=== PATIENT | male | born 1990 | race Caucasian/White ===

== ENCOUNTER 2017-03-11 12:53 | Emergency (ER) | payer SELFPAY ==
[2017-03-11 12:56] VITALS: BP 158/82
--- NOTE | 2017-03-11 13:19 | DR.ABDMALE ---
HPI - Time seen Time seen: 13:15 - PCP Primary Care Physician: LORENZO VUONGP - HPI comment HPI Comment: HAD HARD STOOL YESTERDAY AND DENIES FEVER. TODAY URINE OUTPUT DECREASING. CONDITION GETTING WORSE. - Complaint Chief Complaint Doctors Comments: RLQ ABDOMINAL PAIN WITH NAUSEA TIMES 2 DAYS. Chief Complaint:: PT. C/O RIGHT LOWER ABDOMINAL PAIN THAT BEGAN A FEW DAYS AGO AND HAS WORSENED. PT. STATES HE ALSO HAS TO STRAIN TO URINATE. LBM WAS YESTERDAY AND IT WAS HARD. - Reviewed Nurses Notes Review: Yes - Mode of arrival Mode of Arrival: Ambulatory - Timing Onset of Chief Complaint: 03/08/17 Came on: Suddenly - Duration Duration: Constant Duration: Days - Location Location: RLQ - Severity Severity: Moderate - Quality Quality: Sharp - Context Onset: Suddenly History of: None - Modifying factors Worsening Factors: Nothing Improving Factors: Nothing - Associated signs and symptoms Associated Signs and Symptoms: Nausea PMH - PMH Past Medical History: Yes Past Medical History: Hypertension Past Surgical History: Yes Surgical History: Cholecystectomy, Ortho Surgery - Family History History of Family Medical Conditions: Yes Family Medical History: Heart Failure, Hypertension - Social History Does patient currently use any type of tobacco product: Yes Have you used tobacco products in the last 12 months: Yes Type of Tobacco Use: Cigarettes Does any household member use tobacco: No Alcohol Use: None Do you use any recreational Drugs:: No Lives With: Spouse Lives Where: Home - infectious screening In the last 2 months have you had wt loss of >10#?: NO Have you had fever, night sweats or hemotysis?: No Have you traveled outside the country in the last 6 months?: No Isolation: Standard ROS - Review of Systems Constitutional: No Symptoms Reported Eyes: No Symptoms Reported ENTM: No Symptoms Reported Respiratoy: No Symptoms Reported Cardiovascular: No Symptoms Reported Gastrointestinal/Abdominal: Abdominal Pain, Nausea, Other (RLQ) Genitourinary: No Symptoms Reported. negative: Dysuria, Frequency, Hematuria Neurological: No Symptoms Reported Musculoskeletal: No Symptoms Reported Integumentary: No Symptoms Reported Hematologic/Lymphatic: No Symptoms Reported Endocrine: No Symptoms Reported All Other Systems: Reviewed and Negative PE - Vital Signs Vital Signs: Temp Pulse Resp BP Pulse Ox 03/11/17 12:53 98.1 F 93 H 18 158/82 99 08/06/16 12:00 148/79 - General Limitations: No Limitations General Appearance: Alert - Head Head Exam: Normal Inspection - Eyes Eye exam: Normal Appearance - ENT ENT Exam: Normal External Ear Exam - Neck Neck Exam: Normal Inspection - Chest Chest Inspection: Symmetric Chest Wall Rise - Respiratory Respiratory Exam: Normal Lung Sounds Bilat Respiratory Exam: Bilateral Clear to Auscultation - Cardiovascular Cardiovascular Exam: Regular Rate, Normal Rhythm, Normal Heart Sounds - Abdominal Exam Abdominal Exam: Normal Bowel Sounds, Soft, Tenderness Abdominal Tenderness: RLQ, Moderate - Rectal Rectal Exam: Deferred - Back Back Exam: Normal Inspection - Extremeties Extremities Exam: Normal Inspection - Exam: Male: Deferred - Neurologic Neurological Exam: Alert, Oriented X3 - Psychiatric Psychiatric Exam: Normal Affect, Normal Mood - Skin Skin Exam: Normal Color MDM - Differential Diagnosis Differential Diagnosis: Appendicitis, Bowel Obstruction, Diverticular disease, Gastritus/PUD, Gastroenteritis, Inflammatory BD, Pancreatitis, Urinary tract infection, Urolithiasis Course - Treatment Treatment: SEE ORDERS. - Education/Counseling Education/Counseling: Patient, Education Educated On: Diagnosis, Needs for Follow Up ROR - Labs Reviewed Laboratory Results Reviewed?: Yes Result Diagrams: 03/11/17 13:24 03/11/17 13:24 Laboratory: WBC 5.7 X10^3/uL (3.6-10.0) 03/11/17 13:24 RBC 4.44 X10^6/uL (4.7-6.0) L 03/11/17 13:24 Hgb 14.0 g/dL (13.5-18.0) 03/11/17 13:24 Hct 41.1 % (42.0-54.0) L 03/11/17 13:24 MCV 92.5 fL (80.0-100.0) 03/11/17 13:24 MCH 31.4 pg (27.0-34.0) 03/11/17 13:24 MCHC 34.0 g/dL (33.0-35.0) 03/11/17 13:24 RDW 12.6 % (11.6-16.5) 03/11/17 13:24 Plt Count 218 X10^3/uL (150.0-450.0) 03/11/17 13:24 MPV 8.5 fL (7.4-11.0) 03/11/17 13:24 Neut % 63.7 % (42.0-75.0) 03/11/17 13:24 Lymph % 26.2 % (21.0-51.0) 03/11/17 13:24 [place] % 7.9 % (0.0-13.0) 03/11/17 13:24 Eos % 2.0 % (0.9-2.9) 03/11/17 13:24 Baso % 0.2 % (0.2-1.0) 03/11/17 13:24 Neut # 3.7 x10^3/uL (2.2-4.8) 03/11/17 13:24 Lymph # 1.5 X10^3/uL (1.3-2.9) 03/11/17 13:24 [place] # 0.5 x10^3/uL (0.3-0.8) 03/11/17 13:24 Eos # 0.1 x10^3/uL (0.0-0.2) 03/11/17 13:24 Baso # 0.0 X10^3/uL (0.0-0.1) 03/11/17 13:24 Absolute Nucleated RBC 0.0 /100WBC 03/11/17 13:24 Sodium 141 mmol/L (136-145) 03/11/17 13:24 Corrected Sodium TNP 03/11/17 13:24 Potassium 3.9 mmol/L (3.5-5.1) 03/11/17 13:24 Chloride 107 mmol/L (98-107) 03/11/17 13:24 Carbon Dioxide 30.1 mmol/L (21-32) 03/11/17 13:24 BUN 14 mg/dL (7-18) 03/11/17 13:24 Creatinine 0.99 mg/dL (0.70-1.30) 03/11/17 13:24 Est GFR (MDRD) Af Amer > 60 (>60) 03/11/17 13:24 Est GFR (MDRD) Non-Af > 60 (>60) 03/11/17 13:24 Glucose 98 mg/dL (65-99) 03/11/17 13:24 Calcium 8.6 mg/dL (8.5-10.1) 03/11/17 13:24 Corrected Calcium TNP 03/11/17 13:24 Total Bilirubin 0.50 mg/dL (0.2-1.0) 03/11/17 13:24 AST 15 Units/L (15-37) 03/11/17 13:24 ALT 24 Units/L (12-78) 03/11/17 13:24 Alkaline Phosphatase 76 Units/L (46-116) 03/11/17 13:24 Total Protein 7.3 g/dL (6.4-8.2) 03/11/17 13:24 Albumin 3.6 g/dL (3.4-5.0) 03/11/17 13:24 Globulin 3.7 g/dL (2.5-4.5) 03/11/17 13:24 Albumin/Globulin Ratio 1.0 Ratio (1.1-2.1) L 03/11/17 13:24 Specimen Type Clean catch urine 03/11/17 17:35 Urine Color Yellow (YELLOW) 03/11/17 17:35 Urine Appearance Hazy (CLEAR) 03/11/17 17:35 Urine pH 8.0 (5.0 - 8.0) 03/11/17 17:35 Ur Specific [place] 1.010 (1.000-1.030) 03/11/17 17:35 Urine Protein 1+ (NEGATIVE) 03/11/17 17:35 Urine Glucose (UA) Negative (NEGATIVE) 03/11/17 17:35 Urine Ketones Negative (NEGATIVE) 03/11/17 17:35 Urine Occult Blood Negative (NEGATIVE) 03/11/17 17:35 Urine Nitrite Negative (NEGATIVE) 03/11/17 17:35 Urine Bilirubin Negative (NEGATIVE) 03/11/17 17:35 Urine Urobilinogen 1+ (NORMAL) 03/11/17 17:35 Ur Leukocyte Esterase Negative (NEGATIVE) 03/11/17 17:35 Urine RBC 0-2 /HPF (NEGATIVE) 03/11/17 17:35 Urine WBC 0-2 /HPF (NEGATIVE) 03/11/17 17:35 Ur Squamous Epith Cells Negative /HPF (NEGATIVE) 03/11/17 17:35 Urine Bacteria Trace /HPF (NEGATIVE) 03/11/17 17:35 Ur Culture Indicated? No/not indicated 03/11/17 17:35 - XRAY XRAY Interpreted by: Radiologist XRAY Findings: REPORT DISCUSS WITH PATIENT. - Diagnosis Discharge Problem: Abdominal pain Qualifiers: Abdominal location: right lower quadrant Qualified Code(s): R10.31 - Right lower quadrant pain - Discharge Plan Disposition: 01 HOME, SELF-CARE Condition: Stable Prescriptions: Cyclobenzaprine HCl [FLEXERIL 10 MG *] 10 mg PO TID PRN #15 tab PRN Reason: Ibuprofen [Motrin Tab 800 mg] 800 mg PO Q8H PRN #20 tab PRN Reason: Pain/Inflammation Ranitidine HCl [ZANTAC TAB 150 MG *] 150 mg PO BID #30 tab - Follow ups/Referrals Follow ups/Referrals: WILLIAM LEON [Primary Care Provider] - 3 days - Instructions Instructions: Abdominal Pain, Adult, [id number] Additional Instructions: RETURN TO ED IF WORSE.
[2017-03-11 13:38] LABS: BASOPHILS % (AUTO) 0.2 % (0.2-1.0); EOSINOPHILS # (AUTO) 0.1 x10^3/uL (0.0-0.2); HEMATOCRIT 41.1 % (42.0-54.0); LYMPHOCYTES # (AUTO) 1.5 X10^3/uL (1.3-2.9); LYMPHOCYTES % (AUTO) 26.2 % (21.0-51.0); MEAN CORPUSCULAR HEMOGLOBIN 31.4 pg (27.0-34.0); MEAN CORPUSCULAR VOLUME 92.5 fL (80.0-100.0); MEAN PLATELET VOLUME 8.5 fL (7.4-11.0); MONOCYTES # (AUTO) 0.5 x10^3/uL (0.3-0.8); MONOCYTES % (AUTO) 7.9 % (0.0-13.0); NEUTROPHILS # (AUTO) 3.7 x10^3/uL (2.2-4.8); NEUTROPHILS % (AUTO) 63.7 % (42.0-75.0); PLATELET COUNT 218 X10^3/uL (150.0-450.0); RED BLOOD COUNT 4.44 X10^6/uL (4.7-6.0); RED CELL DISTRIBUTION WIDTH 12.6 % (11.6-16.5); WHITE BLOOD COUNT 5.7 X10^3/uL (3.6-10.0)
[2017-03-11 13:46] LABS: ALANINE AMINOTRANSFERASE 24 Units/L (12-78); ALBUMIN 3.6 g/dL (3.4-5.0); ALKALINE PHOSPHATASE 76 Units/L (46-116); ASPARTATE AMINO TRANSFERASE 15 Units/L (15-37); BLOOD UREA NITROGEN 14 mg/dL (7-18); CALCIUM 8.6 mg/dL (8.5-10.1); CARBON DIOXIDE 30.1 mmol/L (21-32); CHLORIDE 107 mmol/L (98-107); CREATININE 0.99 mg/dL (0.70-1.30); GLUCOSE 98 mg/dL (65-99); SODIUM 141 mmol/L (136-145); TOTAL PROTEIN 7.3 g/dL (6.4-8.2); eGFR BLACK RACES > 60 (>60); eGFR NON BLACK RACES > 60 (>60)
--- NOTE | 2017-03-11 16:26 | CT ---
HISTORY: Right lower quadrant abdominal pain. Study: CT abdomen and pelvis with contrast Comparison: Abdominal series dated August 06, 2016. Technique: Multiple axial images of the abdomen and pelvis were obtained from the lung bases to the pubic symph ysis after the administration of IV contrast. Dose reduction techniques including Automated Exposur e Control (AEC) and adjustment of mA and kV were utilized. Findings: The visualized portions of the lung bases are unremarkable. The liver, spleen, pancreas, kidneys, a nd adrenal glands are unremarkable in their CT appearance. The gallbladder is surgically absent. No significant mesenteric lymphadenopathy or stranding can be observed. No free fluid or free air is seen within the abdomen. Slightly limited evaluation of the large bowel secondary to lack of opacif ication from enteric contrast. The large and small bowel otherwise appear normal. The appendix is n ormal. The urinary bladder is grossly unremarkable. The bony structures are grossly intact. IMPRESSION: 1. The appendix appears normal. 2. No CT evidence of acute abdominal/pelvic pathology. Reported By:
[2017-03-11] MEDS ORDERED: MOTRIN TAB 800 MG PO ONE ×2 (17:31→17:43)
[2017-03-11] MEDS ORDERED: FLEXERIL TAB 10 MG PO ONE (17:31)
[2017-03-11 17:43] LABS: BILIRUBIN,URINE NEGATIVE (NEGATIVE); BLOOD/HEMOGLOBIN,URINE NEGATIVE (NEGATIVE); GLUCOSE, URINE NEGATIVE (NEGATIVE); KETONES,URINE NEGATIVE (NEGATIVE); LEUKOCYTE ESTERASE ,URINE NEGATIVE (NEGATIVE); NITRITES,URINE NEGATIVE (NEGATIVE); PROTEIN,URINE 1+ (NEGATIVE); UROBILINOGEN,URINE 1+ (NORMAL)
[2017-03-11] MEDS ORDERED: FLEXERIL TAB 10 MG ONE (17:43)
[2017-03-11 17:52] LABS: APPEARANCE,URINE HAZY (CLEAR); BACTERIA,URINE TRACE /HPF (NEGATIVE); COLOR,URINE YELLOW (YELLOW); RBC,URINE 0-2 /HPF (NEGATIVE); SQUAMOUS EPITHELIAL CELL,UR NEGATIVE /HPF (NEGATIVE)
== END 2017-03-11 17:48 | disposition home or self-care (01) ==
LOC: ER 13:00
DX: R10.31 Right lower quadrant pain (principal)
CPT/HCPCS: 36415; 74177; 80053; 81001; 85025; 96365; 99282; 99283; A4222

== ENCOUNTER 2017-07-22 01:15 | Emergency (ER) | payer SELFPAY ==
[2017-07-22 01:27] VITALS: BMI 32.1
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
[2017-07-22 02:44] LABS: BASOPHILS # (AUTO) 0.1 X10^3/uL (0.0-0.1); BASOPHILS % (AUTO) 1.3 % (0.2-1.0); BLOOD UREA NITROGEN 11 mg/dL (7-18); CALCIUM 9.3 mg/dL (8.5-10.1); CARBON DIOXIDE 30.4 mmol/L (21-32); CHLORIDE 101 mmol/L (98-107); CREATININE 1.03 mg/dL (0.70-1.30); EOSINOPHILS # (AUTO) 0.1 x10^3/uL (0.0-0.2); EOSINOPHILS % (AUTO) 1.4 % (0.9-2.9); HEMATOCRIT 41.4 % (42.0-54.0); HEMOGLOBIN 14.2 g/dL (13.5-18.0); LYMPHOCYTES # (AUTO) 1.9 X10^3/uL (1.3-2.9); LYMPHOCYTES % (AUTO) 25.8 % (21.0-51.0); MEAN CORPUSCULAR HEMOGLOBIN 31.6 pg (27.0-34.0); MEAN CORPUSCULAR HGB CONC 34.3 g/dL (33.0-35.0); MEAN PLATELET VOLUME 8.5 fL (7.4-11.0); MONOCYTES # (AUTO) 0.6 x10^3/uL (0.3-0.8); MONOCYTES % (AUTO) 8.6 % (0.0-13.0); NEUTROPHILS # (AUTO) 4.5 x10^3/uL (2.2-4.8); NEUTROPHILS % (AUTO) 62.9 % (42.0-75.0); PLATELET COUNT 224 X10^3/uL (150.0-450.0); RED BLOOD COUNT 4.51 X10^6/uL (4.7-6.0); RED CELL DISTRIBUTION WIDTH 12.7 % (11.6-16.5); SODIUM 140 mmol/L (136-145); WHITE BLOOD COUNT 7.2 X10^3/uL (3.6-10.0); eGFR BLACK RACES > 60 (>60); eGFR NON BLACK RACES > 60 (>60)
--- NOTE | 2017-07-22 03:10 | RAD ---
Chest, AP portable Indication: Chest pain Comparison: None Findings: Cardiac silhouette is unremarkable. The lungs are essentially clear without dense infiltrat es or significant pleural effusion. Impression: No acute chest process. Reported By:
[2017-07-22 03:41] VITALS: BP 137/64
== END 2017-07-22 03:35 | disposition home or self-care (01) ==
LOC: ER 01:15
DX: M60.821 Other myositis, right upper arm (principal)
CPT/HCPCS: 36415; 71010; 80048; 85025; 99282; 99283

== ENCOUNTER 2017-09-25 15:12 | Emergency (ER) | payer SELFPAY ==
[2017-09-25] MEDS ORDERED: LR 1000 ML IV 1,000 ML IV ONE ×2 (15:15→15:37)
[2017-09-25] MEDS ORDERED: DEMEROL INJ ONE (15:17)
[2017-09-25] MEDS ORDERED: ZOFRAN INJ 4 MG VIAL ONE (15:17)
[2017-09-25] MEDS ORDERED: STERILE WATER IRRIGATION IR ONE (15:17)
[2017-09-25 15:35] VITALS: BP 139/69; BMI 32.1
[2017-09-25] MEDS ORDERED: ADACEL TDaP IM ONE ×2 (15:37→15:41)
[2017-09-25] MEDS ORDERED: ZOFRAN INJ 4 MG VIAL IVP ONE (15:37)
[2017-09-25] MEDS ORDERED: DEMEROL INJ IVP ONE (15:37)
[2017-09-25] MEDS ORDERED: HYDROGEN PEROXIDE 3% ONE (17:14)
[2017-09-25] MEDS ORDERED: SILVADENE ONE (17:14)
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
== END 2017-09-25 17:46 | disposition left against medical advice (07) ==
LOC: ER 15:12
DX: T31.0 Burns involving less than 10% of body surface (principal); X08.8XXA Exposure to other specified smoke, fire and flames, initial encounter; Y92.9 Unspecified place or not applicable
CPT/HCPCS: 16020; 90471; 96365; 96367; 96374; 96375; 99281; 99282; 99283; A4217; A4222; J2175; J2405; J7120

== ENCOUNTER 2017-09-28 13:30 | Emergency (ER) | payer SELFPAY ==
[2017-09-28 13:38] VITALS: BP 135/71; BMI 32.1
[2017-09-28] MEDS ORDERED: ROCEPHIN VIAL 1 GM IM ONE (14:57)
[2017-09-28] MEDS ORDERED: TORADOL 60 MG VIAL IM ONE (14:58)
[2017-09-28] MEDS ORDERED: TORADOL 60 MG VIAL ONE (15:01)
[2017-09-28] MEDS ORDERED: ROCEPHIN VIAL 1 GM ONE (15:01)
[2017-09-28] MEDS ORDERED: SILVADENE ONE (15:02)
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
[2017-09-28] MEDS ORDERED: SILVADENE TOP NR (16:00)
== END 2017-09-28 16:01 | disposition home or self-care (01) ==
LOC: ER 13:45
PROC: 2W2FX4Z Dressing of Left Hand using Bandage (ICD-10-PCS; principal; 2017-09-28)
DX: T23.202A Burn of second degree of left hand, unspecified site, initial encounter (principal); T25.222A Burn of second degree of left foot, initial encounter; T23.212A Burn of second degree of left thumb (nail), initial encounter; L03.116 Cellulitis of left lower limb
CPT/HCPCS: 16020; 96372; 99282; 99283; J0696; J1885